=== PATIENT | male | born 1995 | race Two or more races ===

== ENCOUNTER 2020-06-06 01:28 | Emergency (ER) | payer OTHER ==
[~2020-06-06] VITALS: Ht 188 cm; Wt 146.1 kg
[2020-06-06] MEDS ORDERED: MEDROLPACK PO (05:25)
[2020-06-06] MEDS ORDERED: TUSNEL LIQUID178 ML PO (05:25)
[2020-06-06] MEDS ORDERED: ZITHROMAX500 MG PO (05:25)
== END 2020-06-06 05:45 | disposition home or self-care (01) ==
LOC: ER 01:28
DX: U07.1 COVID-19 (principal); J12.89 Other viral pneumonia; B33.8 Other specified viral diseases